=== PATIENT | male | born 1995 | race Caucasian/White ===

== ENCOUNTER 2019-08-02 20:36 | Emergency (ER) | payer OTHER, BC ==
[~2019-08-02] VITALS: Ht 172.7 cm; Wt 77.1 kg
== END 2019-08-02 21:18 | disposition home or self-care (01) ==
LOC: ED 20:36
DX: Z04.1 Encounter for examination and observation following transport accident (principal); R45.1 Restlessness and agitation; V49.9XXA Car occupant (driver) (passenger) injured in unspecified traffic accident, initial encounter; Y93.89 Activity, other specified; Y92.89 Other specified places as the place of occurrence of the external cause; Y99.8 Other external cause status